=== PATIENT | male | born 1990 | race Caucasian/White ===

== ENCOUNTER 2017-12-02 08:17 | Emergency (ER) | payer OTHER ==
[~2017-12-02] VITALS: Ht 185.4 cm; Wt 103.0 kg
[2017-12-02 08:19] VITALS: BP 122/72
== END 2017-12-02 08:58 | disposition home or self-care (01) ==
LOC: ED 08:52
DX: S81.011D Laceration without foreign body, right knee, subsequent encounter (principal); Z48.02 Encounter for removal of sutures
CPT/HCPCS: 99282